=== PATIENT | female | born 1965 | race Two or more races ===

== ENCOUNTER 2025-05-02 10:07 | Emergency (ER) | payer MEDICAID, SELFPAY ==
[2025-05-02 10:12] VITALS: PULSE 104; O2SAT 97
[2025-05-02 10:13] VITALS: BP 151/87; PULSE 91; RESP 18; TEMP 36.9; O2SAT 97
[2025-05-02 10:21] VITALS: BMI 35.6
--- NOTE | 2025-05-02 11:40 | EDNOTE_ITS ---
ED Back Injury Pain RME/HPI General Chief Complaint: Back Pain/Injury Stated Complaint: BILATERAL FLANK PAIN SINCE YESTERDAY Time Seen by Provider: 05/02/25 10:50 Arrival date/time: 05/02/25 10:07 Limitations: no limitations RME / HPI RME / HPI Narrative: 59-year-old female with a history of diabetes and hyperlipidemia is here today with a 1 day history of right-sided low back pain and right-sided abdominal merly n. She has some frequent dysuria. No gross hematuria. No nausea or vomiting. No fevers or chills. No diarrhea. She has no other acute complaints. Related Data Home Medications ?Medication ?Instructions ?Recorded ?Confirmed calcitriol 0.25 mcg capsule 0.25 mcg PO QDAY 09/14/21 10/01/21 meclizine 25 mg chewable tablet 25 mg PO TID PRN Verti go 09/14/21 10/01/21 metformin 500 mg tablet 500 mg PO BID 09/14/2110/01 atorvastatin 20 mg tablet 20 mg PO QDAY 02/04/2302/04 Previous Rx's ?Medication ?Instructions ?Recorded lidocaine 5 % topical patch 1 patch topical QDAY #15 e a 09/23/21 (Lidoderm) meclizine 50 mg tablet (Antivert) 50 mg PO BID PRN tere tigo #20 tabs 10/01/21 butalbital 50 mg-acetaminophen 300 1 cap PO Q6HR #7 ca ps 08/04/22 mg-caffeine 40 mg-codeine 30 mg cap (Fioricet with Codeine) diazepam 5 mg tablet (Valium) 5 mg PO BID PRN tension #20 tabs 09/05/22 pantoprazole 40 mg tablet,delayed 40 mg PO BID 30 days #60 tabs 09/21/22 release (Protonix) naproxen 500 mg tablet (Naprosyn) 500 mg PO BID #14 ta bs 05/02/25 Allergies Allergy/AdvReac Type Severity Reaction Status Date / Time No Known Allergies Allergy Verified 05/02/25 10:21 Review of Systems Review of Systems Systems Reviewed: All systems reviewed, normal except as documented ED Exam General Limitations: Present no limitations General appearance: Present alert and in no apparent distress Head Head exam: Present atraumatic Eye Eye exam: Present normal appearance, PERRL and EOMI ENT ENT exam: Present normal exam, normal oropharynx and mucous membranes moist Neck Neck exam: Present normal inspection, full ROM and trachea midline Chest Chest inspection: Present normal inspection and symmetric chest wall rise Respiratory Respiratory exam: Present normal lung sounds bilaterally Cardiovascular Cardiovascular exam: Present regular rate, normal rhythm and normal heart sounds Abdominal Exam Abdominal exam: Present soft and normal bowel sounds Extremities Exam Extremities exam: Present normal inspection and full ROM Back Exam Back exam: Present normal inspection and full ROM Neurological Exam Neurological exam: Present alert and oriented X3 Psychiatric Psychiatric exam: Present normal affect and normal mood Skin Skin exam: Present warm, dry, intact and normal color Course Quality Measures none Orders Category Date Time Status CT Screening NOW Care 05/02/25 11:[address] abdomen pelvis w con Stat Exams 05/02/25 11:50 Completed US abdomen limited Stat Exams 05/02/25 15:59 Completed CBC Stat Lab 05/02/25 12:25 Completed CMP [Comprehensive Metabolic Panel] Stat Lab 05/02/25 12:25 Completed Lipase Stat Lab 05/02/25 12:25 Completed UA, C/S IF [Urinalysis, C/S if Indicated] Stat Lab 05/02/25 12:40 Completed Ketorolac Inj [Toradol Inj] Med 05/02/25 12:03 Discontinued 15 mg IVP X1 ONE Vital Signs Vital signs: Vital Signs Temperature 98.4 F 05/02/25 10:13 Pulse Rate 91 05/02/25 10:13 Respiratory Rate 18 05/02/25 10:13 Blood Pressure 151/87 H 05/02/25 10:13 Pulse Oximetry (%) 97 05/02/25 10:13 Oxygen Delivery Method Room Air 05/02/25 10:13 Back Pain / Injury MDM Narrative MDM Narrative:: 59-year-old female with a history of diabetes and hyperlipidemia is here today with a 1 day history of right-sided low back pain and right-sided abdominal pain. She has some frequent dysuria. No gross hematuria. No nausea or vomiting. No fevers or chills. No diarrhea. She has no other acute complaints. On exam, she is nontoxic. No visible signs of distress. Her abdomen is nontender. There is no point tenderness or guarding. She has no CVA tenderness. Her CBC, CMP, urinalysis are unremarkable. CT of the abdomen pelvis revealed no ureterolithiasis. There is question of possible gallbladder disease and her ultrasound was obtained. Ultrasound revealed no cholecystitis. Patient was reexamined and had no right upper quadrant tenderness. I do believe the patient be discharged from the ER at this time. He will be discharged with a prescription Naprosyn. She is asked to follow-up with her primary doctor this week. Return here for any worsening or emergent changes. Patient data External records reviewed:: None Clinical information provided by:: patient Social determinants that could affect healthcare access:: none Patient has the following chronic illnesses:: Hyperlipidemia How is presenting disease/condition affected by chronic disease/condition?: uneffected by Evaluation data The following diagnostics were reviewed and interpreted by me:: lab results (No leukocytosis or anemia, no metabolic derangement, no elevated liver function test) and radiology exam(s) (CT of the pelvis reveals no acute intra-abdominal or pelvic pathology) Lab and/or radiology exams considered but not ordered:: n/a Interpretation Summary: Unremarkable workup Medications / Prescriptions Medications or Prescriptions considered but not ordered:: n/a Medication administrations:: Medication Administration History Discontinued Medications Ketorolac Tromethamine (Ketorolac Inj 30 Mg/Ml Vial) 15 mg IVP X1 ONE Stop: 05/02/25 12:04 Last Admin: 05/02/25 12:14 Dose: 15 mg Documented By: VG See above Consultations Consultation(s) initiated? (list below): No Diagnosis Differential diagnosis back pain/injury: strain of lumbar region, renal colic and pyelonephritis Most likely diagnosis given after review of the tests above:: n/a Admission Indicated Admission indicated?: not indicated Admission Request Was there a request for admission?: No Disposition Plan Disposition Plan: Discharge Discharge Attestation Discharge Attestation: The patient and all family members were given an opportunity to ask questions and understood the discharge instructions. Discharge instructions specifically effects, indications for sooner follow up or return to the emergency department, and the expected course of current diagnosis. Patient condition: Stable Discharge Plan Plan Patient Disposition: HOME (Self Care) Patient condition on transfer: Stable Prescriptions/Referrals Prescriptions/Med Rec: New naproxen [Naprosyn] 500 mg tablet 500 mg PO BID Qty: 14 0RF No Action metformin 500 mg Tablet 500 mg PO BID calcitriol 0.25 mcg Capsule 0.25 mcg PO QDAY meclizine 25 mg Tablet,Chewable 25 mg PO TID PRN (Reason: Vertigo) lidocaine [Lidoderm] 5 % adhesive patch,medicated 1 patch topical QDAY Qty: 15 0RF Rx Instructions: leave on most painful area for up to 12 hrs Antivert 50 mg tablet 50 mg PO BID PRN (Reason: vertigo) Qty: 20 0RF [id number] [Fioricet with Codeine] [id number] mg capsule 1 cap PO Q6HR MDD 4 Qty: 7 0RF atorvastatin 20 mg tablet 20 mg PO QDAY Patient Comments: TAKE 1 TABLET BY MOUTH EVERY DAY diazepam [Valium] 5 mg tablet 5 mg PO BID PRN (Reason: tension ) Qty: 20 0RF pantoprazole [Protonix] 40 mg tablet,delayed release (DR/EC) 40 mg PO BID 30 Days Qty: 60 1RF Referrals: Arianna Robles [Primary Care Provider] - In 1 week Problem List Clinical Impression: Lumbago Patient/Caregiver Discharge Instructions Education Materials: ED Back Care Tips Additional Instructions: - Use Naprosyn twice daily as prescribed. Follow-up with your clinic this week. - Return to the emergency room at anytime for any worsening or emergent changes. Print Language: Nicarag[place] Stand Alone Forms: [facility] Award Info., Patient Portal Info Letter
--- NOTE | 2025-05-02 11:50 | XR_ITS ---
Examination: CT abdomen with intravenous contrast CT pelvis with intravenous contrast 2-D coronal reconstructions 2-D sagittal reconstructions Date and time of exam:April 24, 2025 1459 hours INDICATIONS: Right-sided flank pain radiating to lower back today. CTDI: vol (mGy) 12.2 DLP: (mGycm) 673 Technique: Multiple axial sections of the abdomen and pelvis have been obtained. 64 slice high-resolution scanner used. 3 mm axial sections have been obtained, post intravenous injection 60 cc [id number] 2-D sagittal, coronal reconstructions obtained. Low dose protocols were performed. One or more of the following dose reduction techniques were used; automated exposure control, adjustment of the mA and/or KV according to patient size, use of iterative reconstruction technique. Findings: Diffuse fatty infiltration throughout the liver no focal liver or splenic lesions Cholelithiasis No pancreatic or adrenal mass. No renal or ureteral calculi, no hydronephrosis Aorta normal size. Normal appendix Colonic diverticulosis, no definite diverticulitis Contracted urinary bladder Absent uterus, no pelvic mass Prominent osteopenia with moderate disc narrowing L5-S1 IMPRESSION: Cholelithiasis with distended gallbladder, recommend hepatobiliary sonography follow-up No renal or ureteral calculi, no hydronephrosis Normal appendix Colonic diverticulosis
[2025-05-02] MEDS: KETOROLAC INJ 30 MG/ML VIAL 15 MG IVP (12:14)
[2025-05-02 12:35] VITALS: BP 120/59; PULSE 83; RESP 17; TEMP 36.7; O2SAT 97
[2025-05-02 12:46] LABS: Collection Type, Urine Voided; RBC,Urine 0 /hpf (0-3)
[2025-05-02 12:47] LABS: Basophils # (Auto) 0.0 Thou/mm3 (0.0-0.2); Basophils % (Auto) 0 % (0-2.5); Eosinophils # (Auto) 0.2 Thou/mm3 (0.0-0.5); Eosinophils % (Auto) 2 % (0-10); Hematocrit 40.7 % (36.0-46.0); Hemoglobin 13.6 g/dL (12.0-16.0); Immature Granulocytes Auto 0.03 Thou/mm3 (0.00-0.00); Lymphocytes # (Auto) 1.4 Thou/mm3 (1.0-4.8); Lymphocytes % (Auto) 13 % (10-50); Mean Corpuscular HGB Conc 33.4 g/dl (31.0-37.0); Mean Corpuscular Hemoglobin 30.4 pg (25.0-35.0); Mean Corpuscular Volume 91 fL (80-100); Monocytes # (Auto) 0.9 Thou/mm3 (0.0-0.8); Monocytes % (Auto) 8 % (0-12); Neutrophils # (Auto) 7.9 Thou/mm3 (1.8-7.7); Neutrophils % (Auto) 76 % (37-80); Nucleated Red Blood Cell # 0.00 Thou/mm3 (0.00-0.00); Nucleated Red Blood Cell % 0 /100 WBC (0); Platelet Count 275 Thou/mm3 (140-440); RDW Standard Deviation 45.1 fL (36.4-46.3); Red Blood Count 4.48 Miln/mm3 (4.00-5.20); White Blood Count 10.4 Thou/mm3 (3.6-11.0)
[2025-05-02 12:54] LABS: Bacteria,Urine Rare; Bilirubin,Urine Negative (Negative); Blood,Urine Negative (Negative); Clarity,Urine Clear (Clear/Hazy); Color,Urine Yellow (Lt Yel-Yel); Culture Indicated,Urine Not Indicated; Glucose, Urine Negative (Negative); Ketones,Urine Negative (Negative); Leukocyte Esterase,Urine Negative (Negative); Nitrite,Urine Negative (Negative); PH,Urine 6.5 (5.0-7.0); Protein,Urine Negative (Neg - Trace); Specific Gravity,Urine 1.014 (1.001-1.035); Squamous Epithelial Cell,Urine 1 /hpf (0-5); Urobilinogen,Urine Negative mg/dL (0.0-1.0); WBC,Urine 1 /hpf (0-5)
[2025-05-02 13:06] LABS: Alanine Aminotransferase 16 U/L (10-49); Albumin, Serum 4.0 gm/dL (3.4-4.8); Albumin/Globulin Ratio 1.4 (1.2-2.2); Alkaline Phosphatase 89 U/L (46-116); Anion Gap 9 (7-16); Aspartate Amino Transferase 19 U/L (0-34); BUN/Creatinine Ratio 14 Ratio (12-20); Bilirubin,Total 0.6 mg/dL (0.3-1.2); Blood Urea Nitrogen 10 mg/dL (9-23); Calcium 9.1 mg/dL (8.3-10.6); Calcium (Corrected) 9.1 mg/dL (8.5-10.1); Carbon Dioxide 27.2 mMol/L (20.0-31.0); Chloride 104 mMol/L (98-107); Creatinine (Component) 0.7 mg/dL (0.6-1.3); Estimated Creatinine Clearance 88.3 mL/min (>60); Globulin 2.8 gm/dL (2.3-3.5); Glucose 109 mg/dL (74-106); Lipase 22 U/L (12-53); Osmolality,Calculated 279 (275-295); Potassium 3.7 mMol/L (3.4-5.1); Sodium 140 mMol/L (136-145); Total Protein 6.8 gm/dL (5.7-8.2); eGFR > 60 See Note
--- NOTE | 2025-05-02 15:59 | XR_ITS ---
Examination: Abdomen sonogram, Limited Date and time of exam: April 24, 2025, 1615 hours Right-sided abdominal pain today Technique: Real-time werner scale transabdominal sonographic images of the upper abdomen obtained. Findings: 18 mm gallstone Normal gallbladder wall Common bile duct 0.7 cm no stones Pancreatic head 2.5 cm Liver 16.6 cm fatty infiltration Normal hepatopedal portal venous flow Patent IVC IMPRESSION: Cholelithiasis, negative for cholecystitis Common bile duct 0.7 cm no definite stones, if biliary colic is a clinical consideration suggest MRCP follow-up
[2025-05-02 18:01] VITALS: BP 121/62; PULSE 80; RESP 16; TEMP 36.6; O2SAT 98
--- NOTE | 2025-05-02 22:21 | PC.NURSE ---
pt left cetirizine at er. pt was called and said throw it away
== END 2025-05-02 18:03 | disposition home or self-care (01) ==
PROVIDERS: Emergency Provider Physician Assistant Medical; PCP Physician Assistant
DX: M54.50 Low back pain, unspecified (principal); R10.9 Unspecified abdominal pain
CPT/HCPCS: 36415; 74177; 76705; 80053; 81001; 83690; 85025; 96374; 99283; A4649; J1885; Q9967